=== PATIENT | female | born 1975 | race Caucasian/White ===

== ENCOUNTER → 2021-01-05 02:34 | Outpatient (CLI) | payer BC, SELFPAY ==
[2021-01-05 17:01] LABS: SARS-CoV-2 RNA PCR Negative
== END ==
PROVIDERS: PCP Internal Medicine; Visit Provider Nurse Practitioner
DX: R05.9 Cough, unspecified (principal); Z20.822 Contact with and (suspected) exposure to COVID-19
CPT/HCPCS: C9803; U0003; U0005

== ENCOUNTER → 2021-04-16 12:14 | Outpatient (CLI) | payer BC, SELFPAY ==
--- NOTE | ~2021-04-16 | XR_ITS ---
EXAMINATION: XR chest 2V EXAM DATE: 04/16/2021 12:50 INDICATION: Z87.891 - Personal history of nicotine dependence . TECHNIQUE: Frontal and lateral projections of the chest obtained and reviewed. Comparison is made to prior examination from 11/04/2016. FINDINGS: Left upper lobe granuloma. The lungs are otherwise clear. There are no pleural effusions. The cardiomediastinal silhouette is within normal limits. There is no pneumothorax suspected. The bones and soft tissues are unremarkable. IMPRESSION: No acute cardiopulmonary findings. Reviewed, dictated and finalized at location B. [employer]
--- NOTE | ~2021-04-16 | XR_ITS ---
XR forearm RT 2V DATE: 04/16/2021 12:50 INDICATION: Right forearm pain TECHNIQUE: AP and lateral views COMPARISON: None FINDINGS: No fracture or dislocation, periosteal reaction or bone destruction. Normal alignment at th e elbow and wrist joints. IMPRESSION: Negative Reviewed, dictated and finalized at location A. [employer] IMPRESSION: Negative
== END ==
PROVIDERS: PCP Nurse Practitioner; Visit Provider Nurse Practitioner
DX: Z87.891 Personal history of nicotine dependence (principal); R52 Pain, unspecified
CPT/HCPCS: 71046; 73090

== ENCOUNTER 2021-05-03 00:08 | Day surgery (SDC) | payer BC, SELFPAY ==
[2021-04-20 15:29] VITALS: BMI 24.5
--- NOTE | 2021-05-02 18:26 | PM.HPGS ---
History of Present Illness History of Present Illness Consent: Risks, benefits, and alternatives have been discussed and questions answered. Patient agrees to proceed with procedure. Chief complaint: neoplasm screening Narrative: Oneil Betts is a 45 year old female referred for colon cancer screening Review of Systems Review of Systems: All systems reviewed & are unremarkable except as noted in HPI and below PMFSH Past Medical History Medical History Anxiety Headache Surgical History Surgical History H/O dilation and curettage 2004 Family History Family History Father Acute myocardial infarction Mother Carcinoma of colon Social History Social History Social History: Caffeine-coffee Smoking packs per day: 1 Smoking cigarettes per day: 20.0 Years smoked: 25 Smoking pack-years: 25.00 Smoking status: Former smoker Tobacco type: cigarettes Smoking end date: 03/10/13 Alcohol intake: never Alcohol use details: occasionally Substance use: never Substance use type: does not use Living arrangements: with family Spiritual care concerns: No Meds Home Medications and Allergies Home Medications Medication Instructions Recorded Confirmed Type cholecalciferol (vitamin D3) 1,250 1,250 mcg PO WEEKLY 01/04/21 04/20/21 History mcg (50,000 unit) capsule Allergies Allergy/AdvReac Type Severity Reaction Status Date / Time No Known Allergies Allergy Verified 05/03/21 06:26 Exam Resp: Auscultation: clear to auscultation bilaterally Cardio: Rate: regular rate Rhythm: regular rhythm GI: GI Palp: Yes Soft to palpation and No Tenderness to palpation present (GI) Assessment and Plan Assessment and plan (1) Screening for colon cancer: Code(s): Z12.11 - Encounter for screening for malignant neoplasm of colon Status: Acute Assessment and Plan: Colonoscopy with possible biopsy or polypectomy or cautery or injection of substances.
[2021-05-03 06:31] VITALS: BP 129/90; PULSE 64; RESP 17; TEMP 36.8; O2SAT 100
--- NOTE | 2021-05-03 06:41 | P.PNAN_ITS ---
Anes - Initial Pre Proc Eval Procedure: Operation Date: 05/03/21 07:30 Proposed Procedures p Screening Colonoscopy - Sekou Finch MD Date/Time: 05/03/21 06:41 Surgeon: Sekou Finch MD Pre Op Diagnosis: neoplasm screening Patient Data Age: 45 Gender: F Height: 1.57 m Weight: 64.3 kg Last Vital Signs Temp 36.8 C 05/03/21 06:31 Pulse 64 05/03/21 06:31 Resp 17 05/03/21 06:31 BP 129/90 05/03/21 06:31 Pulse Ox 100 05/03/21 06:31 Allergies Allergy/AdvReac Type Severity Reaction Status Date / Time No Known Allergies Allergy Verified 05/03/21 06:26 Home Medications Medication Instructions Recorded Confirmed Type cholecalciferol (vitamin D3) 1,250 1,250 mcg PO WEEKLY 01/04/21 04/20/21 History mcg (50,000 unit) capsule Patient hx anesthesia problems: none Family hx anesthesia problems: none Results Review: All pre-operative results and documents have been reviewed as part of the pre-operative evaluation. [facility] Past Medical History Medical History Anxiety Headache Surgical History Surgical History H/O dilation and curettage 2004 Family History Family History Father Acute myocardial infarction Mother Carcinoma of colon Social History Social History Social History: Caffeine-coffee Smoking packs per day: 1 Smoking cigarettes per day: 20.0 Years smoked: 25 Smoking pack-years: 25.00 Smoking status: Former smoker Tobacco type: cigarettes Smoking end date: 03/10/13 Alcohol intake: never Alcohol use details: occasionally Substance use: never Substance use type: does not use Living arrangements: with family Spiritual care concerns: No Anes - Eval Final PreProcedure Day of Procedure 05/03/21 06:41 Patient weight: normal Heart: regular rate and rhythm Lungs: clear to auscultation Airway: Mallampati scale class 1 Neurological: alert and oriented Last oral intake: >/= 8 hours ASA classification: II Emergent: no Anesthetic plan: proceed Anesthesia type and monitoring: general GIVS and standard monitoring Results Review: All pre-operative results and documents have been reviewed as part of the pre-operative evaluation. Informed Consent: The patient's anesthetic plan and its attendant risks and benefits were discussed with the patient/family/POA. Questions were solicited and answers provided to the satisfaction of the patient/family/POA.
[2021-05-03] MEDS: LACTATED RINGERS 1,000 ML 150 ML IV CONT (06:46)
[2021-05-03 07:54] VITALS: BP 103/60; PULSE 62; RESP 18; O2SAT 100
[2021-05-03 08:04] VITALS: BP 103/60; PULSE 65; RESP 25; O2SAT 94
[2021-05-03 08:14] VITALS: BP 112/75; PULSE 60; RESP 23; O2SAT 100
== END 2021-05-03 08:28 | disposition home or self-care (01) ==
PROVIDERS: PCP Nurse Practitioner; Visit Provider Internal Medicine Gastroenterology
PROC: 0DJD8ZZ Inspection of Lower Intestinal Tract, Via Natural or Artificial Opening Endoscopic (ICD-10-PCS; CPT 45378; principal; 2021-05-03 07:30)
DX: Z12.11 Encounter for screening for malignant neoplasm of colon (principal); Z80.0 Family history of malignant neoplasm of digestive organs; F41.9 Anxiety disorder, unspecified; Z87.891 Personal history of nicotine dependence; K57.30 Diverticulosis of large intestine without perforation or abscess without bleeding
CPT/HCPCS: 45378; J2704; J7120

== ENCOUNTER 2021-10-29 00:52 | Day surgery (SDC) | payer BC, SELFPAY ==
[2021-10-24 10:09] VITALS: BMI 24.7
--- NOTE | 2021-10-24 10:29 | SUR.PREOP ---
Report to the Outpatient Waiting Room, entrance under the green pavilion located off [facility], at time 0800 on date 10/29/21. OR Time: 1000. - You and your visitor will be asked to self-screen and do not enter if you have any COVID symptoms. - Only one visitor and NO children visitors are allowed at this time. - The patient visitor is requested to leave or wait in car when not with patient due to restrictions. - A mask is required within the hospital. Patients may have clear liquids (water, carbonated beverages, clear teas, apple juice) until 3 hours prior to surgery (0700) with a maximum of 20 ounces. - No food from midnight until time of surgery - Infants may have breast milk until 4 hours before surgery, formula 6 hours prior to surgery. - Children will be allowed to drink immediately following surgery. If applicable, please bring a bottle or sippy cup to assist with drinking. Juice, water, soda, and popsicles are readily available. For infants on formula, please bring formula the day of surgery. Pacifiers are allowed. Take the following medications with a SIP of water the morning of surgery: NA Medications to discontinue per physician Vitamin D3 Date to take last dose 10/26/21 Please no make-up, nail pashto, hairspray, perfume, deodorant, or body powder the day of surgery. No jewelry (including any body piercings) or valuables the day of surgery, leave them at home. Please take a shower or bath the night before, or the morning of, surgery with an antibacterial soap. Wear comfortable, loose fitting clothing. Children are encouraged to wear pajamas. - Jewelry must be removed prior to entering the operating room. Rings and piercings that are not removed may be cut off. - The hospital will not accept responsibility for valuables. - Please leave all valuables, including medications, at home the day of surgery. If you are going home after surgery, a licensed residential recycle driver must drive you home. - NO public transportation without another adult. - We recommend that an adult stay with you for 24 hours following discharge. - We also recommend that you do not drive, make important decision, drink alcoholic beverages, or take any drugs that were not prescribed by your health care provider for at least 24 hours after your discharge time. For Pediatric surgeries, we recommend two adults accompany the child home (only one inside the building at this time). Follow any additional instructions given to you from your surgeon. If you or anyone in your household have experienced Covid symptoms in the past week, please notify your surgeon or the nurse liaison at the phone number below for possible testing. Telephone instructions given to patient and asked if any additional questions and then verbalized understanding. Patient advised to call surgeon office or pre surgery nurse liaison [phone] if any additional questions.
--- NOTE | 2021-10-29 07:34 | WPDHPUPDATE1 ---
History and Physical Update Update Date/Time: 10/29/21 07:34 History and Physical has been reviewed, including an updated exam of the patient. There are NO changes in the patient's condition. Risks, benefits, and alternatives have been discussed and questions answered. Patient agrees to proceed with procedure.
--- NOTE | 2021-10-29 07:35 | P.HP_ITS ---
History of Present Illness History of Present Illness Consent: Risks, benefits, and alternatives have been discussed and questions answered. Patient agrees to proceed with procedure. Chief complaint: menorrhagia Narrative: Oneil Betts is a 46 year old female with cycles approximately every 18 days that have been getting heavier. Patient also has had intermenstrual bleeding. Due to her history of polyps, it is recommended to proceed with D&C hysteroscopy. Risks of infection, bleeding, and perforation were reviewed. Possible pathology was also discussed. Patient voices understanding and agrees to proceed. Review of Systems Review of Systems: not repeated day of surgery; patient states no changes in status [facility] Past Medical History Medical History (Updated 10/29/21 @ 08:01 by Vivian Bowers MD) Anxiety Headache (normal spontaneous vaginal delivery) x2 Surgical History Surgical History (Updated 10/29/21 @ 08:01 by Vivian Bowers MD) H/O dilation and curettage 2013 with polyp History of loop electrical excision procedure (LEEP) Family History Family History Father Acute myocardial infarction Mother Carcinoma of colon Social History Social History Social History: Caffeine-coffee Smoking packs per day: 1 Smoking cigarettes per day: 20.0 Years smoked: 24 Smoking pack-years: 24.00 Smoking status: Former smoker Tobacco type: cigarettes Smoking end date: 03/10/15 Alcohol intake: current Drinks per week: 1 Alcohol use details: occasionally Substance use: never Substance use type: does not use Living arrangements: with family Spiritual care concerns: No Meds Home Medications and Allergies Home Medications Medication Instructions Recorded Confirmed Type cholecalciferol (vitamin D3) 1,250 1,250 mcg PO WEEKLY 01/04/21 10/24/21 History mcg (50,000 unit) capsule Allergies Allergy/AdvReac Type Severity Reaction Status Date / Time No Known Allergies Allergy Verified 10/24/21 10:08 Exam Const: General: healthy appearing and alert Orientation/consciousness: patient oriented x3 GI: GI Palp: Yes Soft to palpation, No Tenderness to palpation present (GI) and No Palpable mass present : External Female Exam: normal external appearance Speculum Exam - Vagina: normal appearance of the vagina and normal vaginal discharge Speculum Exam - Cervix: normal appearance of the cervix Bimanual exam- vagina & uterus: uterine size normal and consistency normal Bimanual Exam- Adnexa, other: normal adnexae and No adnexal tenderness Neuro: General: patient oriented x3 Assessment and Plan Assessment and plan (1) Menorrhagia: Code(s): N92.0 - Excessive and frequent menstruation with regular cycle Status: Acute Assessment and Plan: Plan to proceed with D&C hysteroscopy
[2021-10-29] MEDS: ACETAMINOPHEN 500 MG TABLET 1000 MG PO (08:10)
--- NOTE | 2021-10-29 08:11 | P.PNAN_ITS ---
Anes - Initial Pre Proc Eval Procedure: Operation Date: 10/29/21 09:45 Proposed Procedures p Hysteroscopy Dilation and Curettage - Vivian Bowers MD Date/Time: 10/29/21 08:11 Surgeon: Vivian Bowers MD Pre Op Diagnosis: menorrhagia Patient Data Age: 46 Gender: F Height: 1.57 m Weight: 61.3 kg Allergies Allergy/AdvReac Type Severity Reaction Status Date / Time No Known Allergies Allergy Verified 10/29/21 08:29 Home Medications Medication Instructions Recorded Confirmed Type cholecalciferol (vitamin D3) 1,250 1,250 mcg PO WEEKLY 01/04/21 10/29/21 History mcg (50,000 unit) capsule Patient hx anesthesia problems: none Family hx anesthesia problems: none Results Review: All pre-operative results and documents have been reviewed as part of the pre-operative evaluation. [facility] Past Medical History Medical History (Updated 10/29/21 @ 08:01 by Vivian Bowers MD) Anxiety Headache (normal spontaneous vaginal delivery) x2 Surgical History Surgical History (Updated 10/29/21 @ 08:01 by Vivian Bowers MD) H/O dilation and curettage 2013 with polyp History of loop electrical excision procedure (LEEP) Family History Family History Father Acute myocardial infarction Mother Carcinoma of colon Social History Social History Social History: Caffeine-coffee Smoking packs per day: 1 Smoking cigarettes per day: 20.0 Years smoked: 24 Smoking pack-years: 24.00 Smoking status: Former smoker Tobacco type: cigarettes Smoking end date: 03/10/15 Alcohol intake: current Drinks per week: 1 Alcohol use details: occasionally Substance use: never Substance use type: does not use Living arrangements: with family Spiritual care concerns: No Anes - Eval Final PreProcedure Day of Procedure 10/29/21 08:11 Patient weight: normal Heart: regular rate and rhythm Lungs: clear to auscultation Airway: Mallampati scale class 1 Neurological: alert and oriented Last oral intake: >/= 8 hours ASA classification: II Emergent: no Anesthetic plan: proceed Anesthesia type and monitoring: general GIVS and standard monitoring Results Review: All pre-operative results and documents have been reviewed as part of the pre- operative evaluation. Informed Consent: The patient's anesthetic plan and its attendant risks and benefits were discussed with the patient/family/POA. Questions were solicited and answers provided to the satisfaction of the patient/family/POA.
[2021-10-29] MEDS: LACTATED RINGERS 1,000 ML 30 ML IV CONT (08:20)
[2021-10-29 08:30] VITALS: BP 133/90; PULSE 65; RESP 16; TEMP 36.5; O2SAT 100
[2021-10-29] MEDS: LIDOCAINE HCL 1% PF 30 ML VIAL INFILTRATE (10:18)
--- NOTE | 2021-10-29 10:32 | P.OP_ITS ---
Procedure Note - Detailed Date of Procedure 10/29/21 Pre-op Diagnosis menorrhagia Post-op Diagnosis Same Procedure Performed D&C hysteroscopy with MyoSure resection of polyps Surgeon Vivian Bowers MD Anesthesia MAC and Local Findings Uterus sounds to 8cm there was an anterior polyp and a thickened area and the posterior left fundus Description of Procedure The patient was taken to the operating room and placed under anesthesia in the dorsal lithotomy position. She was prepped and draped in usual sterile fashion. [place] speculum was placed in the vagina and the cervix grasped on the anterior lip with a tenaculum. The cervix is injected in each quadrant with 1% lidocaine. Uterus is sounded to 8cm. The cervix is serially dilated to an 8 Hegar and the diagnostic hysteroscope placed with the above-stated findings. The MyoSure device is opened and placed and under direct visualization the polyps and thickened area are removed. The device is removed and the sharp curette used to curette the endometrium until a good uterine cry was noted in all areas. Instruments were then removed. Sponge, needle, and instrument counts are correct per the OR staff. Patient is awakened from anesthesia and taken to recovery in stable condition. Estimated Blood Loss 5 Drains No Packing No Pathology Yes (Endometrial shavings and curettings) Complications No immediate complications Condition Stable Disposition PACU
[2021-10-29 10:35] VITALS: BP 140/89; PULSE 55; RESP 14; O2SAT 100
[2021-10-29 11:00] VITALS: BP 129/78; PULSE 47; RESP 14; O2SAT 100
[2021-10-29 11:30] VITALS: BP 116/70; PULSE 43; RESP 14
== END 2021-10-29 11:42 | disposition home or self-care (01) ==
PROVIDERS: PCP Nurse Practitioner Family; Visit Provider Obstetrics & Gynecology Gynecology
PROC: 0U5B8ZZ Destruction of Endometrium, Via Natural or Artificial Opening Endoscopic (ICD-10-PCS; CPT 58563; principal; 2021-10-29 09:45)
DX: N92.0 Excessive and frequent menstruation with regular cycle (principal); N84.0 Polyp of corpus uteri; Z87.891 Personal history of nicotine dependence
CPT/HCPCS: 58558; 88305; A9270; J2250; J2704; J3010; J7030; J7120

== ENCOUNTER → 2021-11-28 10:53 | Outpatient (CLI) | payer BC, SELFPAY ==
--- NOTE | ~2021-11-28 | XR_ITS ---
XR_CERV2-3V_CR DATE: 11/28/2021 11:10 INDICATION: Neck and mid back pain. No injury. TECHNIQUE: AP, open-mouth, lateral views COMPARISON: None FINDINGS: There is mild reversal cervical curvature which may be due to muscle spasm. There is mild l evoscoliosis of the cervical and upper thoracic spine. C1 and C2 are normally aligned and the odontoid process is intact. Minimal degenerative disc disease at C3-4. Mild degenerative disc disease at C4-5. Moderately severe degenerative disc disease and prominent posterior spurring at C5-6. Moderate degenerative disc disease at C6-7. No fracture or dislocation or locked facet or prevertebral soft tissue swelling. IMPRESSION: Reversal cervical curvature, which may be due to muscle spasm Multilevel degenerative disc disease, most pronounced at C5-6, with prominent posterior spurring at t his level Reviewed, dictated and finalized at Location A. Reviewed, dictated and finalized at location B. IMPRESSION: Reversal cervical curvature, which may be due to muscle spasm Multilevel degenerative disc disease, most pronounced at C5-6, with prominent p osterior spurring at this level
--- NOTE | ~2021-11-28 | XR_ITS ---
XR thoracic spine 3V DATE: 11/28/2021 11:11 INDICATION: Back pain TECHNIQUE: AP, lateral, swimmer views COMPARISON: None FINDINGS: Minimal levoscoliosis of the upper thoracic spine. Mild dextro scoliosis of the lower thora cic and lumbar spine. No fracture or dislocation or destruction. The thoracic pedicles are intact. No paraspinal soft tissu e thickening. Degenerative disc disease of the cervical spine. IMPRESSION: Mild scoliosis Reviewed, dictated and finalized at location B. IMPRESSION: Mild scoliosis
== END ==
PROVIDERS: PCP Nurse Practitioner Family; Visit Provider Nurse Practitioner Family
DX: M41.9 Scoliosis, unspecified (principal); M47.812 Spondylosis without myelopathy or radiculopathy, cervical region; M54.6 Pain in thoracic spine
CPT/HCPCS: 72040; 72072

== ENCOUNTER → 2021-12-21 11:32 | Outpatient (CLI) | payer BC, SELFPAY ==
--- NOTE | ~2021-12-21 | XR_ITS ---
EXAMINATION: XR foot LT min 3V DATE: 12/21/2021 11:44 INDICATION: Left foot pain, initial encounter TECHNIQUE: Dorsoplantar, lateral, and 2 oblique views of the left foot were obtained. COMPARISON: None. FINDINGS: There is an acute, traumatic, closed, oblique neck fracture of the fifth proximal phalanx. Soft tissue swelling surrounds the fracture. No additional fracture is identified. There is mild oste oarthritis of multiple interphalangeal joints. IMPRESSION: 1. Acute nondisplaced neck fracture of the fifth proximal phalanx. Reviewed, dictated and finalized at location F.
== END ==
PROVIDERS: PCP Nurse Practitioner Family; Visit Provider Internal Medicine
DX: S92.515A Nondisplaced fracture of proximal phalanx of left lesser toe(s), initial encounter for closed fracture (principal); M79.675 Pain in left toe(s)
CPT/HCPCS: 73630

== ENCOUNTER → 2022-01-23 07:59 | Outpatient (CLI) | payer BC, SELFPAY ==
--- NOTE | ~2022-01-23 | MR_ITS ---
EXAMINATION: MR cervical spine wo con, MR thoracic spine wo con DATE: 01/23/2022 09:02 INDICATION: Neck pain and thoracic back pain TECHNIQUE: 1. Magnetic resonance imaging (MRI) of the cervical spine was performed without intravenous contrast. Sequences included sagittal T2-weighted FSE, sagittal T2-weighted FS FSE, sagittal T1-weighted FSE, axial MERGE and axial T2-weighted FSE. 2. MRI of the thoracic spine was performed without intravenous contrast. Sagittal localizer T1-weight ed FSE of the cervicothoracic spine was obtained. Thoracic spine sequences included sagittal T2-weigh veronica FSE, sagittal T1-weighted SE, Sagittal T2-weighted FS FSE, and axial T2-weighted FSE. COMPARISON: None FINDINGS: Cervical spine: Straightening of the normal cervical lordosis. Vertebral body heights are normal. Normal marrow sign al. Moderate disc height loss at C5-C6, mild to moderate disc height loss at C4-C5 and mild disc heig ht loss at C3-C4 and C6-C7. Cord signal intensity is normal. Cervical soft tissues are normal. The fo llowing disc levels are specifically discussed: C2-C3: The disc does not extend beyond the endplate margin. There is no uncovertebral joint osteoarth ritis. There is no facet joint osteoarthritis. There is no neural foraminal stenosis. There is no julian tral canal stenosis. C3-C4: Annular fissure and asymmetric to the left disc bulge which minimally indents the left ventral surface of the cord. There is mild bilateral uncovertebral joint osteoarthritis. There is mild right and moderate left facet joint osteoarthritis. There is mild left neural foraminal stenosis. There is mild central canal stenosis. C4-C5: Disc is and minimally bulging. There is mild bilateral uncovertebral joint osteoarthritis. The re is mild right and moderate left facet joint osteoarthritis. There is no neural foraminal stenosis. There is no central canal stenosis. C5-C6: Disc is bulging. There is moderate bilateral uncovertebral joint osteoarthritis. There is mild bilateral facet joint osteoarthritis. There is mild left neural foraminal stenosis. There is mild ce ntral canal stenosis with slight flattening of the right ventral surface of the cord. C6-C7: Disc is bulging. There is moderate left and severe right uncovertebral joint osteoarthritis. T here is mild bilateral facet joint osteoarthritis. There is mild bilateral neural foraminal stenosis. There is mild central canal stenosis. C7-T1: The disc does not extend beyond the endplate margin. There is no uncovertebral joint osteoarth ritis. There is mild right and moderate left facet joint osteoarthritis. There is mild left neural fo raminal stenosis. There is no central canal stenosis. Thoracic spine: Alignment is normal. Vertebral body and disc heights are normal. Annular fissure and small right para central disc protrusion at T3-T4 which does not significantly narrow the central canal. Remaining tho racic discs do not extend beyond the endplate margins. No thoracic central canal stenosis. Multilevel mild thoracic facet osteoarthritis. Left-sided T9 costovertebral osteoarthritis with hypertrophic os teophytes which contribute to mild neural foraminal stenosis on the left at T8-T9. No other thoracic neural foraminal stenosis. There is normal cord signal throughout the thoracic spine. The conus termi nates at the cephalad aspect of L1. Paravertebral soft tissues are unremarkable. IMPRESSION: 1. Moderate cervical spondylosis. 2. Minimal thoracic and minimal cervical spondylosis. Reviewed, dictated and finalized at location B. [employer] IMPRESSION: 1. Moderate cervical spondylosis. 2. Minimal thoracic and minimal cervical spondylosis.
== END ==
PROVIDERS: PCP Nurse Practitioner Family; Visit Provider Nurse Practitioner Family
DX: M47.892 Other spondylosis, cervical region (principal); M47.894 Other spondylosis, thoracic region
CPT/HCPCS: 72141; 72146

== ENCOUNTER → 2022-06-13 10:25 | Outpatient (CLI) | payer BC, SELFPAY ==
--- NOTE | ~2022-06-13 | XR_ITS ---
EXAMINATION: XR forearm LT 2V INDICATION: Left forearm pain TECHNIQUE: The left forearm are obtained. COMPARISON: None available FINDINGS: No fracture, dislocation, or subluxation. The bones, soft tissues, and joint spaces are nor mal. IMPRESSION: 1. No acute osseous abnormality. Reviewed, dictated and finalized at location L.
== END ==
PROVIDERS: PCP Nurse Practitioner Family; Visit Provider Nurse Practitioner Family
DX: M79.632 Pain in left forearm (principal)
CPT/HCPCS: 73090

== ENCOUNTER 2023-01-08 11:37 | Emergency (ER) | payer BC, SELFPAY ==
--- NOTE | ~2023-01-08 | XR_ITS ---
EXAMINATION: XR chest 2V DATE: 01/08/2023 11:56 INDICATION: Persistent cough. TECHNIQUE: Frontal and lateral views of the chest were obtained. COMPARISON: Chest 2 views 04/16/2021 FINDINGS: Calcified bilateral lung nodules are consistent with old granulomatous disease. No pleural effusion or pneumothorax. The heart size is normal. IMPRESSION: 1. No acute cardiopulmonary disease. Reviewed, dictated and finalized at location E.
[2023-01-08 11:39] VITALS: BP 139/97; PULSE 78; RESP 16; TEMP 36.7; O2SAT 99
[2023-01-08 12:37] VITALS: PULSE 60; RESP 16
[2023-01-08] MEDS: ALBUTEROL SULFATE NEB 2.5 MG/3 ML INH INHALATION (12:37)
[2023-01-08] MEDS: IPRATROPIUM BR 0.02% INH SOLN 0.5 MG/2.5 ML VIAL INHALATION (12:37)
--- NOTE | 2023-01-08 12:44 | ED.GENADULT ---
HPI - General Adult General Chief complaint: Upper Respiratory Infection Stated complaint: possible pna Time Seen by Provider: 01/08/23 12:04 History of Present Illness HPI narrative: Patient is a 47-year-old female who presents ER with persistent cough. Ongoing over the last 3 weeks. Patient has been on Z-Ellis as well as prednisone recently. Finished the medication last Friday. Continues to have sensation of congestion in the chest. Cough is nonproductive. She has been using an inhaler without a spacer. She is not currently having any fevers or chills or sweats. No chest pain but does have central pressure. Daughter had similar illness but recovered quicker. Related Data Home Medications Medication Instructions Recorded Confirmed cholecalciferol (vitamin D3) 1,250 1,250 mcg PO WEEKLY 01/04/21 10/29/21 mcg (50,000 unit) capsule Allergies Allergy/AdvReac Type Severity Reaction Status Date / Time No Known Allergies Allergy Verified 01/08/23 12:20 Review of Systems Review of Systems: All systems reviewed & are unremarkable except as noted in HPI and below Constitutional: Constitutional: Denies chills, Denies fatigue and Denies fever(s) Cardiovascular: Cardiovascular: Reports chest pain (Pressure), Denies rapid heart rate and Denies radiating jaw, neck or arm pain Respiratory: Respiratory: Reports chest congestion, Reports cough, Denies dyspnea and Denies wheezing Gastrointestinal: Gastrointestinal: Denies abdominal pain, Denies diarrhea, Denies nausea and Denies vomiting PMFSH Past Medical History Medical History (Updated 01/08/23 @ 14:51 by Hollis Ricardo MD) Anxiety Bronchitis Cervical spine arthritis Cough Degenerative joint disease of knee Headache History of tobacco abuse Menorrhagia (normal spontaneous vaginal delivery) x2 Screening for colon cancer Vision abnormalities Surgical History Surgical History H/O dilation and curettage 2013 with polyp History of loop electrical excision procedure (LEEP) Family History Family History (Updated 12/12/21 @ 10:08 by Kennedi Camargo) Father Acute myocardial infarction Heart disease Mother Carcinoma of colon Social History Social History (Updated 12/12/21 @ 10:10 by Kennedi Camargo) Social History: Caffeine-coffee Smoking packs per day: 1 Smoking cigarettes per day: 20.0 Years smoked: 24 Smoking pack-years: 24.00 Smoking status: Former smoker Tobacco type: cigarettes Smoking end date: 03/10/15 Alcohol intake: current Drinks per week: 1 Alcohol use details: occasionally Substance use: never Substance use type: does not use Living arrangements: with family Occupation/Education: other 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 HEAD: Normocephalic, atraumatic. ENT: Mucous membranes moist. TMs normal bilaterally. NECK: Supple. CHEST: Clear to auscultation. No respiratory distress. HEART: Regular rate and rhythm. Normal peripheral pulses. EXTREMITIES: Normal range of motion. No edema. NEURO: Alert and oriented x3. PSYCH: Normal mood and affect. Course Course Emergency Course: Patient resting comfortably. Informed results. Recommend follow-up with PCP for further treatment evaluation. Vital Signs Vital signs: Vital Signs Temperature 98.1 F 01/08/23 11:39 Pulse Rate 78 01/08/23 11:39 Respiratory Rate 16 01/08/23 11:39 Blood Pressure 139/97 H 01/08/23 11:39 Pulse Oximetry 99 01/08/23 11:39 Temperature 98.1 F 01/08/23 11:39 Pulse Rate 68 01/08/23 12:48 Respiratory Rate 16 01/08/23 12:48 Blood Pressure 139/97 H 01/08/23 11:39 Pulse Oximetry 99 01/08/23 11:39 Medical Decision Making Vital Signs Vital Signs: Vital Signs Temperature 98.1 F
[2023-01-08 12:48] VITALS: PULSE 68; RESP 16
--- NOTE | 2023-01-08 13:14 | ECG_ITS ---
Measurements Intervals [place] Rate: 60 P: 53 CO: 140 QRS: 60 QRSD: 82 T: 46 QT: 421 QTc: 423 Interpretive Statements SINUS RHYTHM BASELINE ARTIFACT- I, AVL NORMAL ECG NO PREVIOUS ECG AVAILABLE FOR COMPARISON Electronically Signed On 01-08-2023 13:57:57 CDT by Masood Melendrez D.O.
[2023-01-08 13:33] LABS: Basophils Absolute Auto 0.1 K/mm3 (0.0-0.1); Basophils Percent Auto 0.6 % (0.2-1.2); Eosinophils Absolute Auto 0.1 K/mm3 (0-0.3); Eosinophils Percent Auto 1.4 % (0-4.4); Hemoglobin 14.9 g/dL (12.0-15.0); Immature Granulocyte Absolute 0.11 K/mm3 (0.00-0.031); Immature Granulocyte Percent A 1.4 % (0-0.5); Lymphocytes Absolute Auto 3.11 K/mm3 (0.9-3.2); Lymphocytes Percent Auto 38.6 % (18.3-44.2); Mean Corpuscular HGB Conc 32.4 g/dl (32-36); Mean Corpuscular Hemoglobin 29.2 pg (26-34); Mean Corpuscular Volume 90.2 fl (80-100); Mean Platelet Volume 9.4 fl (7.4-10.4); Monocytes Absolute Auto 0.8 K/mm3 (0.1-0.6); Monocytes Percent Auto 9.8 % (2.6-8.5); Neutrophils Absolute Auto 3.9 K/mm3 (1.3-6.7); Neutrophils Percent Auto 48.2 % (45.5-73.1); Platelet Count Result 313 k/mm3 (150-375); Red Cell Distribution Width 13.2 % (11.5-14.5); White Blood Count 8.1 K/mm3 (4.5-10.0)
[2023-01-08 13:43] LABS: Anion Gap 6 mmol/L (8-16); Blood Urea Nitrogen 12 mg/dL (7-17); Calcium 9.7 mg/dL (8.4-10.2); Carbon Dioxide 28 mmol/L (22-30); Chloride 101 mmol/L (98-107); Estimated CRCL calculation 87 ml/min; Estimated Glomerular Filt Rate > 60; Glucose 100 mg/dL (65-110); Potassium 4.2 mmol/L (3.4-5.0); Sodium 135 mmol/L (137-145)
[2023-01-08 14:38] LABS: Troponin I < 0.012 ng/mL (0.000-0.034)
[2023-01-08 14:55] VITALS: BP 130/87; PULSE 64; RESP 14; O2SAT 99
== END 2023-01-08 14:57 | disposition home or self-care (01) ==
PROVIDERS: Emergency Provider Emergency Medicine; PCP Nurse Practitioner Family
DX: R07.9 Chest pain, unspecified (principal); M47.812 Spondylosis without myelopathy or radiculopathy, cervical region; M17.9 Osteoarthritis of knee, unspecified; Z87.891 Personal history of nicotine dependence
CPT/HCPCS: 36415; 71046; 80048; 84484; 85025; 93005; 94640; 99284

== ENCOUNTER 2024-02-17 09:02 | Outpatient (CLI) | payer SELFPAY ==
--- NOTE | ~2024-02-17 | MMUS_ITS ---
EXAMINATION: MM diagnostic vashti RT w loretta, US breast RT limited HISTORY: Follow-up right breast asymmetries TECHNIQUE: Additional 3-D tomosynthesis images of the right breast were performed and synthetic 2-D i mages were generated. CAD analysis was submitted and interpreted. High resolution Limited right breas t ultrasound was performed. COMPARISON: Comparison to multiple prior studies sequentially, with oldest reviewed study dated 03/2020. BREAST PARENCHYMAL COMPOSITION: Dense: The breasts are heterogeneously dense, which may obscure small masses FINDINGS: MAMMOGRAPHIC FINDINGS: There are 2 small masses in the upper outer quadrant of the right breast obscured by dense fibrogland ular tissue. ULTRASOUND: Complete US of all 4 quadrants of the breast/s and retroareolar region was reviewed. At 10:00, 6 cm f rom the nipple there is a 7 mm simple cyst. At 10:00, 5 cm from the nipple there is an oval hypoechoi c 6 mm mass with parallel orientation, no posterior features and no internal vascularity. IMPRESSION: 1. Probable benign right breast mass at 10:00, 5 cm from the nipple measuring 6 mm. 2. Recommend 6 month follow-up Limited right breast ultrasound and diagnostic mammogram BI-RADS category 3, probably benign findings. Reviewed, dictated and finalized at location B. GERIATRIC IMPRESSION: 1. Probable benign right breast mass at 10:00, 5 cm from the nipple measuring 6 mm. 2. Recommend 6 month follow-up Limited right breast ultrasound and diagnostic m ammogram BI-RADS category 3, probably benign findings.
== END 2024-02-17 09:03 | disposition home or self-care (01) ==
PROVIDERS: PCP Obstetrics & Gynecology Gynecology; Visit Provider Obstetrics & Gynecology Gynecology
DX: R92.8 Other abnormal and inconclusive findings on diagnostic imaging of breast (principal)
CPT/HCPCS: 76642; 77061; 77065; G0279

== ENCOUNTER 2024-08-17 08:06 | Outpatient (CLI) | payer BC, SELFPAY ==
--- NOTE | ~2024-08-17 | MMUS_ITS ---
EXAMINATION: MM diagnostic vashti RT w loretta, US breast RT limited HISTORY: Palpable right breast abnormality TECHNIQUE: Additional 3-D tomosynthesis images of the right breast were performed and synthetic 2-D i mages were generated. CAD analysis was submitted and interpreted. High resolution Limited right breas t ultrasound was performed. COMPARISON: Comparison to multiple prior studies sequentially, with oldest reviewed study dated 03/2020. BREAST PARENCHYMAL COMPOSITION: Not dense: There are scattered areas of fibroglandular density. FINDINGS: MAMMOGRAPHIC FINDINGS: There are no suspicious masses, calcifications or architectural distortion in the right breast to sug gest malignancy. ULTRASOUND: Limited right breast ultrasound: At 10:00, 6 cm from the nipple there is a small oval 3 mm hypoechoic mass with echogenic hilum, suspicious for small intramammary lymph node. At 10:00, 5 cm from the nip ple there is an oval hypoechoic mass with slightly irregular margins. There is internal vascularity. No posterior features. Parallel orientation. This mass measures 6 x 6 x 3 mm. IMPRESSION: 1. Slightly irregular vascular right breast mass at 10:00, 5 cm from the nipple measuring 6 mm. Proba ble benign 3 mm mass at 10:00, 6 cm from the nipple. 2. Ultrasound-guided biopsy of 6 mm mass at 10:00, 5 cm from the nipple recommended. BI-RADS category 4, suspicious findings. Reviewed, dictated and finalized at location [] IMPRESSION: 1. Slightly irregular vascular right breast mass at 10:00, 5 cm from the nipple measuring 6 mm. Probable benign 3 mm mass at 10:00, 6 cm from the nipple. 2. Ultrasound-guided biopsy of 6 mm mass at 10:00, 5 cm from the nipple recomme nded. BI-RADS category 4, suspicious findings.
== END 2024-08-17 08:07 | disposition home or self-care (01) ==
LOC: MICIMG 08:07
PROVIDERS: PCP Obstetrics & Gynecology Gynecology; Visit Provider Obstetrics & Gynecology Gynecology
DX: N63.11 Unspecified lump in the right breast, upper outer quadrant (principal)
CPT/HCPCS: 76642; 77061; 77065; G0279

== ENCOUNTER 2025-03-01 14:16 | Outpatient (CLI) | payer BC, SELFPAY ==
--- NOTE | ~2025-03-01 | MM_ITS ---
EXAMINATION: MM screening vashti BI w loretta HISTORY: Screening. TECHNIQUE: Craniocaudal and mediolateral oblique 3-D tomosynthesis images were obtained and synthetic 2-D images were generated. CAD analysis was submitted and interpreted. COMPARISON: August,. 2023, 2022, and 2021. BREAST PARENCHYMAL COMPOSITION: Dense: The breasts are heterogeneously dense, which may obscure small masses. FINDINGS: There is a biopsy marker on the right. No suspicious masses are seen. There are no suspicious calcifications. No unexplained architectural distortion is seen. There are no skin or nipple abnormalities identified. There is no adenopathy seen on the images submitted. IMPRESSION: No mammographic evidence to suggest malignancy is seen. The patient may return to screening mammography as per ACR guidelines. BI-RADS 1 - Negative. Reviewed, dictated and finalized at location C. 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
== END 2025-03-01 14:17 | disposition home or self-care (01) ==
LOC: MICIMG 14:17
PROVIDERS: PCP Obstetrics & Gynecology Gynecology; Visit Provider Obstetrics & Gynecology Gynecology
DX: Z12.31 Encounter for screening mammogram for malignant neoplasm of breast (principal)
CPT/HCPCS: 77063; 77067